=== PATIENT | male | born 1985 | race Caucasian/White ===

== ENCOUNTER 2023-03-10 10:55 | Inpatient (IN) ==
[2023-03-10 12:05] LABS: Basophils # (auto) 0.02 K/uL (0-0.2); Basophils % (auto) 0.5 %; Eosinophils # (auto) 0.07 K/uL (0-0.50); Eosinophils % (auto) 1.6 %; Hematocrit (blood only) 43.2 % (42.0-52.0); Hemoglobin 14.8 g/dl (14.0-18.0); Immature Granulocytes # (auto) 0.01 K/uL (0.01-0.20); Immature Granulocytes % (auto) 0.2 %; Lymphocytes # (auto) 1.51 K/uL (1.2-3.4); Lymphocytes % (auto) 34.7 %; Mean Corpuscular Hemoglobin 30.5 pg (25.0-34.0); Mean Corpuscular Hgb Conc 34.3 g/dL (32.0-36.0); Mean Corpuscular Volume 88.9 fL (80.0-100.0); Mean Platelet Volume 11.9 fL (9.4-12.4); Monocytes # (auto) 0.44 K/uL (0.11-0.59); Monocytes % (auto) 10.1 %; Neutrophils % (auto) 52.9 %; Platelet Count 176 K/uL (130-400); RDW Coefficient of Variation 12.4 % (11.5-14.5); RDW Standard Deviation 40.8 fL (36.4-46.3); Red Blood Count 4.86 M/uL (4.70-6.10); White Blood Count 4.35 K/ul (4.8-10.8)
[2023-03-10 12:28] LABS: Albumin Globulin Ratio 1.6 (0.9-2); Albumin Level 4.8 gm/dl (3.4-5.0); BUN Creatinine Ratio 16.7 (10-20); Bilirubin,Total 0.6 mg/dl (0.2-1.0); Calcium 9.8 mg/dl (8.6-10.3); Creatinine Clr Calc Pharmacy 133.9 ml/min; Est GFR (African American) 133.7 ml/min; Est GFR (Non-African American) 115.3 ml/min; Potassium 4.3 mmol/L (3.5-5.1); Total Protein 7.8 gm/dl (6.0-8.3)
[2023-03-10] MEDS ORDERED: IOVERSOL 350 MG 125mL Prefilled Syringe IV ONE (13:21)
--- NOTE | 2023-03-10 13:48 | CT Scan Report ---
UNENHANCED CT OF THE BRAIN; CT ANGIOGRAM OF THE BRAIN; CT ANGIOGRAM OF THE NECK CLINICAL HISTORY: Neurological deficit. Stroke like symptoms. Blurry vision. COMPARISON STUDY: No priors. TECHNIQUE: Unenhanced axial CT scan of the brain is performed. Subsequently, following the IV adminis tration of 125 of Optiray 350, CT angiogram of the head and neck was performed from the aortic arch t o the vertex. Images are reviewed in the axial, sagittal, and coronal planes. 3-D MIPS images are cre ated and assessed. IV contrast was administered without complication. All measurements were calculate d based on NASCET criteria. A dose lowering technique was utilized adhering to the principles of ALA RA. CT DOSE: 1040.65 mGy.cm FINDINGS: Brain parenchyma: The brain parenchyma is normal in appearance. There is no hemorrhage, mass effect, or evidence of acute territorial ischemia by CT criteria. There is no evidence of enhancing mass lesi on on the angiogram phase images. The ventricles, sulci, and cisterns are normal in configuration. Gr ay-white matter differentiation is preserved. No extra-axial fluid collection is seen. Thoracic aorta: Visualized portions of the thoracic aorta are normal in caliber. The aortic arch demo nstrates standard 3-vessel anatomy. Right carotid arterial system: The right common carotid artery is widely patent, as are the right int ernal and external carotid arteries. Left carotid arterial system: The left common carotid artery is widely patent, as are the left internal combustion engine subassembler al and external carotid arteries. Vertebral arteries: The vertebral arteries are widely patent bilaterally noting right-sided dominance . Subclavian arteries: Widely patent bilaterally. Intracranial vasculature: The internal carotid arteries are patent at the skull base, as are the ante rior and middle cerebral arteries bilaterally. The vertebrobasilar system and posterior cerebral yanely iam are widely patent. The right vertebral artery is dominant. There is a left posterior commuting a rtery. 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 No additional aneurysm is identified. There are no foci of high-grad e stenosis or focal vessel occlusion seen throughout the intracranial circulation. Jugular veins: Patent bilaterally. Dural sinuses: Patent. Lung apices: Partially visualized upper lobe lung parenchyma appears clear. Soft tissues: The visualized pharyngeal soft tissues are normal in appearance noting angiographic pha se technique. The oropharyngeal airway appears widely patent. The salivary and thyroid glands are nor mal in appearance. No cervical lymphadenopathy is seen. Skeletal structures: The calvarium appears intact. The cervical spine is within normal limits. Orbits: The bony orbits are intact. Orbital contents are normal as visualized. Sinuses and mastoids: The paranasal sinuses are clear. The mastoid air cells are well pneumatized. IMPRESSION: 1. No acute intracranial abnormality. 2. 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 3. Otherwise unremarkable CT angiogram of the brain 4. Unremarkable CT angiogram of the neck. ACT 112: Negative or not required by law. Electronically signed by: Chiki Marshall M.D. 03/10/2023 1:45 PM
--- NOTE | 2023-03-10 14:02 | Emergency Department Note ---
History of Present Illness General Chief complaint: Neuro Symptoms/Deficit Stated complaint: RIGHT ARM AND HAND NUMBNESS, BLURRED VISION Time Seen by Provider: 03/10/23 12:59 History of Present Illness Provider complaint: Blurry vision right arm weakness Onset (ago): hour(s) (3.5) Pain Consistency: + now resolved 37-year-old male presents emergency department for blurry vision and right arm weakness. Patient reports at approximately 9:30 AM he was sitting on his toilet and started to have difficulties moving his right arm. He states he felt like his right arm was numb. He states he was having difficulties texting or reaching to grab toilet paper. He reports he was having blurry vision. Patient reports the symptoms lasted for approximately 1 hour then he started developing a mild headache. Patient reports headache is currently mild. He reports the weakness in his right upper extremity has significantly improved. He still reports some paresthesias in his right upper extremity. No chest pain difficulty breathing. No nausea or vomiting. No blood thinner Home Medications Medication Instructions Recorded Confirmed Type multivitamin 1 tab PO QAM 03/10/23 03/10/23 History omeprazole 20 mg-sodium 1 cap PO DAILY 03/10/23 03/10/23 History bicarbonate 1.1 gram capsule (Zegerid OTC) Allergies Allergy/AdvReac Type Severity Reaction Status Date / Time No Known Allergies Allergy Unverified 03/10/23 14:35 Past Med/Surg History Medical History (Updated 03/10/23 @ 14:36 by Praneeth Jimenes PA-C) No pertinent family history No pertinent past medical history Surgical History (Updated 03/10/23 @ 14:10 by Sudarshan Bergman MD) No pertinent past surgical history Social History Smoking Status: Never smoker Feels Safe at Home: Yes Physical Exam Vital Signs Vital Signs - 24 hr 03/10/23 11:13 03/10/23 13:01 03/10/23 13:02 Temperature 36.5 C Temperature Source Temporal Artery Scan Pulse Rate 64 Pulse Rate [Left Finger] 78 Pulse Rhythm Regular Pulse Rhythm [Left Finger] Regular Pulse Strength [Left Finger] Normal Respiratory Rate 20 17 Respiratory Effort / Characteristics Non-Labored Spontaneous Non-Labored Spontaneous Respiratory Depth Normal Normal Respiratory Pattern Regular Blood Pressure 146/81 H Blood Pressure [Left Arm] 147/95 H Blood Pressure Mean 102 Blood Pressure Mean [Left Arm] 112 Blood Pressure Position [Left Arm] Semi-fowlers Pulse Oximetry 98 97 Oxygen Delivery Method Room Air Room Air Sepsis Recent Fever Within 48 Hours No Sepsis New/Unexplained Change in Mental Status No Sepsis Action Taken by Nursing No Action Required 03/10/23 13:02 03/10/23 13:38 Temperature Temperature Source Pulse Rate 58 L Pulse Rate [Left Finger] Pulse Rhythm Pulse Rhythm [Left Finger] Pulse Strength [Left Finger] Respiratory Rate Respiratory Effort / Characteristics Respiratory Depth Respiratory Pattern Blood Pressure Blood Pressure [Left Arm] Blood Pressure Mean Blood Pressure Mean [Left Arm] Blood Pressure Position [Left Arm] Pulse Oximetry 100 Oxygen Delivery Method Room Air Sepsis Recent Fever Within 48 Hours Sepsis New/Unexplained Change in Mental Status Sepsis Action Taken by Nursing Physical Exam HENT: Exam performed. -Head: Normocephalic and atraumatic. -Right Ear: External ear normal. No mastoid erythema -Left Ear: External ear normal. No mastoid erythema -Mouth/Throat: The oropharynx is clear and moist. No trismus in the jaw. No dental abscesses or uvula swelling. No oropharyngeal exudate or tonsillar abscesses. EYES: Conjunctivae and EOM are normal. Pupils are equal, round, and reactive to light. Right eye exhibits no discharge. Left eye exhibits no discharge. No scleral icterus. NECK: Normal range of motion. Neck supple. No JVD present. No spinous process tenderness present. No rigidity. No tracheal deviation and normal range of mot ion present. CV: Normal rate, regular rhythm, normal heart sounds and intact distal pulses. There is no peripheral edema. Palpable radial pulses bue. PULM/CHEST: Effort normal and breath sounds normal. No respiratory distress. No stridor. She has no wheezes. She has no rales. MUSC/SKEL: Normal range of motion. There is no peripheral edema, tenderness or deformity. NEURO: She is alert and oriented to person, place, and time. She has normal strength. No cranial nerve deficit or sensory deficit. Coordination and gait normal. GCS eye subscore is 4. GCS verbal subscore is 5. GCS motor subscore is 6. Cerebellar tests wnl. No clonus. NIHSS 0 SKIN: Skin is warm and dry. She is not diaphoretic. PSYCH: She has a normal mood and affect. Behavior is normal. Judgment and thought content normal. Course Course 1259: The patient was evaluated in room A4. A complete history and physical exam was performed Cardiac monitoring: An order was placed for continuous cardiac monitoring. The monitor shows a rate of 60 with sinus rhythm interpreted by me NIHSS 0, no code stroke called at this time. 1413: Vital signs stable. Imaging within normal limits. Is thought that the patient suffered a TIA. Patient is to be admitted for TIA/stroke work-up. Discussed case with Praneeth Jimenes NP for Dr. [facility] hospitalist will evaluate the patient. Administered Medications Discontinued Medications Ioversol (Ioversol 350 Mg 125ml Prefilled Syringe) 118 ml IV ONCE ONE Stop: 03/10/23 13:22 Last Admin: 03/10/23 13:24 Dose: 118 ml Documented By: ANGELA Medical Decision Making Laboratory Data Attestation: I reviewed the patient's lab results. 03/10/23 11:45 03/10/23 11:45 Lab Results 03/10/23 03/10/23 03/10/23 Range/Units 11:45 11:45 11:45 WBC 4.35 L (4.8-10.8) K/ul RBC 4.86 (4.70-6.10) M/uL Hgb 14.8 (14.0-18.0) g/dl Hct 43.2 (42.0-52.0) % MCV 88.9 (80.0-100.0) fL MCH 30.5 (25.0-34.0) pg MCHC 34.3 (32.0-36.0) g/dL RDW Std Deviation 40.8 (36.4-46.3) fL RDW Coeff of Dmitry 12.4 (11.5-14.5) % Plt Count 176 (130-400) K/uL MPV 11.9 (9.4-12.4) fL Immature Gran % (Auto) 0.2 % Neut % (Auto) 52.9 % Lymph % (Auto) 34.7 % [place] % (Auto) 10.1 % Eos % (Auto) 1.6 % Baso % (Auto) 0.5 % Neut # (Auto) 2.30 (1.40-6.50) K/uL Lymph # (Auto) 1.51 (1.2-3.4) K/uL [place] # (Auto) 0.44 (0.11-0.59) K/uL Eos # (Auto) 0.07 (0-0.50) K/uL Baso # (Auto) 0.02 (0-0.2) K/uL Immature Gran # (Auto) 0.01 (0.01-0.20) K/uL PT 11.3 (9.0-12.0) Seconds INR 1.0 (0.9-1.1) APTT 25.6 (21.0-31.0) Seconds PTT Ratio 0.9 Sodium 138 (136-145) mmol/L Potassium 4.3 (3.5-5.1) mmol/L Chloride 106 (98-107) mmol/L Carbon Dioxide 27 (21-32) mmol/L Anion Gap 5 (3-11) BUN 13 (6-23) mg/dl Creatinine 0.78 (0.6-1.4) mg/dl Est Cr Clr Drug Dosing 133.9 ml/min Est GFR ( Amer) 133.7 ml/min Est GFR (Non-Af Amer) 115.3 ml/min BUN/Creatinine Ratio 16.7 (10-20) Glucose 117 H (70-99(Fasting)) mg/dl Calcium 9.8 (8.6-10.3) mg/dl Magnesium 2.0 (1.7-2.4) mg/dl Total Bilirubin 0.6 (0.2-1.0) mg/dl AST 23 (13-39) U/L ALT 14 (7-52) U/L Alkaline Phosphatase 78 (34-104) U/L Troponin I High Sens 3.3 (0-20) pg/ml Total Protein 7.8 (6.0-8.3) gm/dl Albumin 4.8 (3.4-5.0) gm/dl Globulin 3.0 (2.5-4.0) gm/dl Albumin/Globulin Ratio 1.6 (0.9-2) Blood Type Antibody Screen 03/10/23 Range/Units 13:11 WBC (4.8-10.8) K/ul RBC (4.70-6.10) M/uL Hgb (14.0-18.0) g/dl Hct (42.0-52.0) % MCV (80.0-100.0) fL MCH (25.0-34.0) pg MCHC (32.0-36.0) g/dL RDW Std Deviation (36.4-46.3) fL RDW Coeff of Dmitry (11.5-14.5) % Plt Count (130-400) K/uL MPV (9.4-12.4) fL Immature Gran % (Auto) % Neut % (Auto) % Lymph % (Auto) % [place] % (Auto) % Eos % (Auto) % Baso % (Auto) % Neut # (Auto) (1.40-6.50) K/uL Lymph # (Auto) (1.2-3.4) K/uL [place] # (Auto) (0.11-0.59) K/uL Eos # (Auto) (0-0.50) K/uL Baso # (Auto) (0-0.2) K/uL Immature Gran # (Auto) (0.01-0.20) K/uL PT (9.0-12.0) Seconds INR (0.9-1.1) APTT (21.0-31.0) Seconds PTT Ratio Sodium (136-145) mmol/L Potassium (3.5-5.1) mmol/L Chloride (98-107) mmol/L Carbon Dioxide (21-32) mmol/L Anion Gap (3-11) BUN (6-23) mg/dl Creatinine (0.6-1.4) mg/dl Est Cr Clr Drug Dosing ml/min Est GFR ( Amer) ml/min Est GFR (Non-Af Amer) ml/min BUN/Creatinine Ratio (10-20) Glucose (70-99(Fasting)) mg/dl Calcium (8.6-10.3) mg/dl Magnesium (1.7-2.4) mg/dl Total Bilirubin (0.2-1.0) mg/dl AST (13-39) U/L ALT (7-52) U/L Alkaline Phosphatase (34-104) U/L Troponin I High Sens (0-20) pg/ml Total Protein (6.0-8.3) gm/dl Albumin (3.4-5.0) gm/dl Globulin (2.5-4.0) gm/dl Albumin/Globulin Ratio (0.9-2) Blood Type A Positive Antibody Screen NEGATIVE Imaging Data Attestation: I personally reviewed and interpreted this imaging study as follows: My Impression: CT head: no ICH Radiologist's Impression: Head CT 03/10/23 13:[address] OF THE BRAIN; CT ANGIOGRAM OF THE BRAIN; CT ANGIOGRAM OF THE NECK CLINICAL HISTORY: Neurological deficit. Stroke like symptoms. Blurry vision. COMPARISON STUDY: No priors. TECHNIQUE: Unenhanced axial CT scan of the brain is performed. Subsequently, following the IV administration of 125 of Optiray 350, CT angiogram of the head and neck was performed from the aortic arch to the vertex. Images are reviewed in the axial, sagittal, and coronal planes. 3-D MIPS images are created and assessed. IV contrast was administered without complication. All measurements were calculated based on NASCET criteria. A dose lowering technique was utilized adhering to the principles of ALARA. CT DOSE: 1040.65 mGy.cm FINDINGS: Brain parenchyma: The brain parenchyma is normal in appearance. There is no hemorrhage, mass effect, or evidence of acute territorial ischemia by CT criteria. There is no evidence of enhancing mass lesion on the angiogram phase images. The ventricles, sulci, and cisterns are normal in configuration. Summers- white matter differentiation is preserved. No extra-axial fluid collection is se en. Thoracic aorta: Visualized portions of the thoracic aorta are normal in caliber. The aortic arch demonstrates standard 3-vessel anatomy. Right carotid arterial system: The right common carotid artery is widely patent, as are the right internal and external carotid arteries. Left carotid arterial system: The left common carotid artery is widely patent, as are the left internal and external carotid arteries. Vertebral arteries: The vertebral arteries are widely patent bilaterally noting right-sided dominance. Subclavian arteries: Widely patent bilaterally. Intracranial vasculature: The internal carotid arteries are patent at the skull base, as are the anterior and middle cerebral arteries bilaterally. The vertebrobasilar system and posterior cerebral arteries are widely patent. The right vertebral artery is dominant. There is a left posterior commuting artery. 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 No additional aneurysm is identified. There are no foci of high-grade stenosis or focal vessel occlusion seen throughout the intracranial circulation. Jugular veins: Patent bilaterally. Dural sinuses: Patent. Lung apices: Partially visualized upper lobe lung parenchyma appears clear. Soft tissues: The visualized pharyngeal soft tissues are normal in appearance noting angiographic phase technique. The oropharyngeal airway appears widely patent. The salivary and thyroid glands are normal in appearance. No cervical lymphadenopathy is seen. Skeletal structures: The calvarium appears intact. The cervical spine is within normal limits. Orbits: The bony orbits are intact. Orbital contents are normal as visualized. Sinuses and mastoids: The paranasal sinuses are clear. The mastoid air cells are well pneumatized. IMPRESSION: 1. No acute intracranial abnormality. 2. 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 3. Otherwise unremarkable CT angiogram of the brain 4. Unremarkable CT angiogram of the neck. ACT 112: Negative or not required by law. Electronically signed by: Chiki Marshall M.D. 03/10/2023 1:45 PM Head CTA 03/10/23 13:[address] OF THE BRAIN; CT ANGIOGRAM OF THE BRAIN; CT ANGIOGRAM OF THE NECK CLINICAL HISTORY: Neurological deficit. Stroke like symptoms. Blurry vision. COMPARISON STUDY: No priors. TECHNIQUE: Unenhanced axial CT scan of the brain is performed. Subsequently, following the IV administration of 125 of Optiray 350, CT angiogram of the head and neck was performed from the aortic arch to the vertex. Images are reviewed in the axial, sagittal, and coronal planes. 3-D MIPS images are created and assessed. IV contrast was administered without complication. All measurements were calculated based on NASCET criteria. A dose lowering technique was utilized adhering to the principles of ALARA. CT DOSE: 1040.65 mGy.cm FINDINGS: Brain parenchyma: The brain parenchyma is normal in appearance. There is no hemorrhage, mass effect, or evidence of acute territorial ischemia by CT criteria. There is no evidence of enhancing mass lesion on the angiogram phase images. The ventricles, sulci, and cisterns are normal in configuration. Summers- white matter differentiation is preserved. No extra-axial fluid collection is seen. Thoracic aorta: Visualized portions of the thoracic aorta are normal in caliber. The aortic arch demonstrates standard 3-vessel anatomy. Right carotid arterial system: The right common carotid artery is widely patent, as are the right internal and external carotid arteries. Left carotid arterial system: The left common carotid artery is widely patent, as are the left internal and external carotid arteries. Vertebral arteries: The vertebral arteries are widely patent bilaterally noting right-sided dominance. Subclavian arteries: Widely patent bilaterally. Intracranial vasculature: The internal carotid arteries are patent at the skull base, as are the anterior and middle cerebral arteries bilaterally. The vert ebrobasilar system and posterior cerebral arteries are widely patent. The right vertebral artery is dominant. There is a left posterior commuting artery. 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 No additional aneurysm is identified. There are no foci of high-grade stenosis or focal vessel occlusion seen throughout the intracranial circulation. Jugular veins: Patent bilaterally. Dural sinuses: Patent. Lung apices: Partially visualized upper lobe lung parenchyma appears clear. Soft tissues: The visualized pharyngeal soft tissues are normal in appearance noting angiographic phase technique. The oropharyngeal airway appears widely patent. The salivary and thyroid glands are normal in appearance. No cervical lymphadenopathy is seen. Skeletal structures: The calvarium appears intact. The cervical spine is within normal limits. Orbits: The bony orbits are intact. Orbital contents are normal as visualized. Sinuses and mastoids: The paranasal sinuses are clear. The mastoid air cells are well pneumatized. IMPRESSION: 1. No acute intracranial abnormality. 2. There is a 4 mm aneurysm of the left middle cerebral artery seen along the s ylvian fissure as above. 3. Otherwise unremarkable CT angiogram of the brain 4. Unremarkable CT angiogram of the neck. ACT 112: Negative or not required by law. Electronically signed by: Chiki Marshall M.D. 03/10/2023 1:45 PM Neck CTA 03/10/23 13:[address] OF THE BRAIN; CT ANGIOGRAM OF THE BRAIN; CT ANGIOGRAM OF THE NECK CLINICAL HISTORY: Neurological deficit. Stroke like symptoms. Blurry vision. COMPARISON STUDY: No priors. TECHNIQUE: Unenhanced axial CT scan of the brain is performed. Subsequently, following the IV administration of 125 of Optiray 350, CT angiogram of the head and neck was performed from the aortic arch to the vertex. Images are reviewed in the axial, sagittal, and coronal planes. 3-D MIPS images are created and assessed. IV contrast was administered without complication. All measurements were calculated based on NASCET criteria. A dose lowering technique was utilized adhering to the principles of ALARA. CT DOSE: 1040.65 mGy.cm FINDINGS: Brain parenchyma: The brain parenchyma is normal in appearance. There is no hemorrhage, mass effect, or evidence of acute territorial ischemia by CT criteria. There is no evidence of enhancing mass lesion on the angiogram phase images. The ventricles, sulci, and cisterns are normal in configuration. Summers- white matter differentiation is preserved. No extra-axial fluid collection is seen. Thoracic aorta: Visualized portions of the thoracic aorta are normal in caliber. The aortic arch demonstrates standard 3-vessel anatomy. Right carotid arterial system: The right common carotid artery is widely patent, as are the right internal and external carotid arteries. Left carotid arterial system: The left common carotid artery is widely patent, as are the left internal and external carotid arteries. Vertebral arteries: The vertebral arteries are widely patent bilaterally noting right-sided dominance. Subclavian arteries: Widely patent bilaterally. Intracranial vasculature: The internal carotid arteries are patent at the skull base, as are the anterior and middle cerebral arteries bilaterally. The vertebrobasilar system and posterior cerebral arteries are widely patent. The right vertebral artery is dominant. There is a left posterior commuting artery. 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 No additional aneurysm is identified. There are no foci of high-grade stenosis or focal vessel occlusion seen throughout the intracranial circulation. Jugular veins: Patent bilaterally. Dural sinuses: Patent. Lung apices: Partially visualized upper lobe lung parenchyma appears clear. Soft tissues: The visualized pharyngeal soft tissues are normal in appearance noting angiographic phase technique. The oropharyngeal airway appears widely patent. The salivary and thyroid glands are normal in appearance. No cervical lymphadenopathy is seen. Skeletal structures: The calvarium appears intact. The cervical spine is within normal limits. Orbits: The bony orbits are intact. Orbital contents are normal as visualized. Sinuses and mastoids: The paranasal sinuses are clear. The mastoid air cells are well pneumatized. IMPRESSION: 1. No acute intracranial abnormality. 2. 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 3. Otherwise unremarkable CT angiogram of the brain 4. Unremarkable CT angiogram of the neck. ACT 112: Negative or not required by law. Electronically signed by: Chiki Marshall M.D. 03/10/2023 1:45 PM ECG Data Attestation: I personally reviewed and interpreted this ECG as follows: Rate (beats per minute): 64 Rhythm: + normal sinus ECG Intervals/blocks: + Normal OK and + Normal QT-c ECG ST segments: + Normal ST segments Additional Comments: QRS 78 MDM Narrative 1259: The patient was evaluated in room A4. A complete history and physical exam was performed Cardiac monitoring: An order was placed for continuous cardiac monitoring. The monitor shows a rate of 60 with sinus rhythm interpreted by me NIHSS 0, no code stroke called at this time. 1413: Vital signs stable. Imaging within normal limits. Is thought that the patient suffered a TIA. Patient is to be admitted for TIA/stroke work-up. Dis cussed case with Praneeth Jimenes NP for Dr. [facility] hospitalist will evaluate the patient. Impression & Plan Brain TIA Discharge Plan Visit Data Chief Complaint: Neuro Symptoms/Deficit Stated Complaint: RIGHT ARM AND HAND NUMBNESS, BLURRED VISION ED Provider: Sudarshan Bergman Discharge Problem: Brain TIA Patient Disposition: Being Evaluated by Hospitalist Forms Stand Alone Forms: My [facility] Prescriptions Prescriptions: No Action multivitamin [Multi-Vitamin] Tablet 1 tab PO QAM omeprazole-sodium bicarbonate [Zegerid OTC] 20-1.1 mg-gram Capsule 1 cap PO DAILY Referrals Referrals: PCP,NO [Primary Care Provider] -
--- NOTE | 2023-03-10 14:06 | History & Physical Report ---
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 seen along the sylvian fissure"but otherwise were unremarkable -Will continue his stroke workup with MRI of the brain wo con, TTE, and am fasting lipid/A1c -Q4H neuro checks -Will consult Neurology for assistance with his workup -Will give 324 mg PO aspirin now, will wait for further dosing until his MRI results are back -BL SCD's for DVT PPX -Regular diet -AM CBC, BMP, Mag (2) Hernia, hiatal: Plan: -Continue omeprazole (3) GERD (gastroesophageal reflux disease): Plan: -Continue omeprazole (4) Tobacco abuse, in remission: Plan: -Smoked cigarettes in college, not currently using tobacco Plan The patient was discussed with Dr. Stewart at the time of the admission History of Present Illness Chief Complaint: Right arm numbness, blurry vision Primary Care Provider: NO PCP Benny is a 37 year old male with a PMH of hiatial hernia, GERD, and previous tobacco abuse who presented to the [facility] ED on 03/10 due to right arm numbness/weakness with blurry vision this am. Vitals remained stable in the ED. Labs including CBC, CMP, and high sen trop were WNL. CT of the head wo con and CTA of the head/neck was read as "1. No acute intracranial abnormality. 2. 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 3. Otherwise unremarkable CT angiogram of the brain 4. Unremarkable CT angiogram of the neck.". We were asked to admit the patient for further evaluation of his neurologic symptoms. At the time of the exam the patient was sitting in bed in no acute distress with his sitting bedside, history was obtained from both. The patient was in his normal state of health when he woke this am around 0730. He took his am dose of omeprazole and started his day. He was sitting on the toilet at approximately 0930 when he tried to reach for the toilet paper with his right hand. He states that his right arm was difficult to control, almost as though his fine motor control was off. He states that his arm felt somewhat numb or like it was not his own right arm during this time but denies paresthesias. He also noticed that he was unable to coordinate grabbing/adjusting his glasses with his right arm/hand during this time. He was able to get back to his desk and tried to continue working on his computer. While trying to read his e-mail he noticed that he could only read text in the central portion of both eyes, he felt as though he had to adjust the position of his head to read other portions of the screen. He denies recent fever, chills, chest pain, SOB, cough, abd pain, nausea, vomiting, abd pain, dysuria, hematuria, melena, LE swelling, and recent trauma. He denies having symptoms like this in the past. He does have a previous history of scotomas not associated with headache or other symptoms of a migraine. He denies his vision changes being similar to a scotoma today. At the time of the exam he states that his symptoms have nearly resolved completely. He feels as though his strength and coordination are improved in his RUE but that his RUE still feels "off". His vision is back to baseline per the patient. Of note, the patient and his rock climb frequently. They were recently doing larger bolder climbs over the past week. The patient also helped his friend move a heavy washer last night but denies any recent trauma or injuries. Please refer to Dr. Stewart's attestation for any changes to the treatment plan Allergies Allergy/AdvReac Type Severity Reaction Status Date / Time No Known Allergies Allergy Unverified 03/10/23 14:35 Home Medications Medication Instructions Recorded Confirmed Type multivitamin 1 tab PO QAM 03/10/23 03/10/23 History omeprazole 20 mg-sodium 1 cap PO DAILY 03/10/23 03/10/23 History bicarbonate 1.1 gram capsule (Zegerid OTC) Past Med/Surg History Medical History (Updated 03/10/23 @ 14:36 by Praneeth Jimenes PA-C) No pertinent family history No pertinent past medical history Surgical History (Updated 03/10/23 @ 14:10 by Sudarshan Bergman MD) No pertinent past surgical history Social History Smoking Status: Former smoker Hx Alcohol Use: Yes Alcohol type: beer Hx Substance Use: No Preferred Language: Omani Communication Ability: Effective Radio Personality Required: No Beliefs That Will Affect Care: None Current Living Situation: Spouse Other Information That Helps Us Care for You: No Feels Safe at Home: Yes Safety Concerns: Feels Safe At This Time Assistive Devices: None Physical Exam Physical Exam: Physical Exam: General: In no acute distress, stated age, well-nourished, good hygiene HEENT: Normocephalic, atraumatic, no scleral icterus, pupils around round, symmetrical, and reactive to light, moist mucus membranes, trachea midline, no thyromegaly Chest/Pulm: No respiratory distress, symmetrical chest expansion, clear breath sounds throughout Cardiac: RRR, no murmurs noted Abdomen: Negative for ascites and bruising, normoactive bowel sounds, soft, non-tender to palpation throughout Musculoskeletal: Symmetrical and without signs of acute trauma, upper and lower extremities with full ROM, no atrophy, spasticity, or flaccidity Extremities: Radial, dorsalis pedis, and posterior tibial pulses are intact and symmetrical, no edema noted in the BL LE's Skin: Warm, dry, no rashes , lesions, or scars noted Neuro: Alert and oriented to person, place, month, year, and president, no focal defects, CN II-XII tested and intact, negative cerebellar and BL pronator drift testing, no tremors noted Psych: No acute distress, calm and cooperative during the exam Results & Data Results & Data Vital Signs (Past 12 Hours) Vital Signs Temp Pulse Pulse Resp BP BP Pulse Ox 03/10/23 13:38 58 L 03/10/23 13:02 100 03/10/23 13:02 78 17 147/95 H 97 03/10/23 13:01 03/10/23 11:13 36.5 C 64 20 146/81 H 98 O2 Del Method 03/10/23 13:38 03/10/23 13:02 Room Air 03/10/23 13:02 Room Air 03/10/23 13:01 Room Air 03/10/23 11:13 Laboratory Results Abnormal lab results 03/10/23 03/10/23 Range/Units 11:45 11:45 WBC 4.35 L (4.8-10.8) K/ul Glucose 117 H (70-99(Fasting)) mg/dl Diagnostic Findings Head CT 03/10/23 13:[address] OF THE BRAIN; CT ANGIOGRAM OF THE BRAIN; CT ANGIOGRAM OF THE NECK CLINICAL HISTORY: Neurological deficit. Stroke like symptoms. Blurry vision. COMPARISON STUDY: No priors. TECHNIQUE: Unenhanced axial CT scan of the brain is performed. Subsequently, following the IV administration of 125 of Optiray 350, CT angiogram of the head and neck was performed from the aortic arch to the vertex. Images are reviewed in the axial, sagittal, and coronal planes. 3-D MIPS images are created and assessed. IV contrast was administered without complication. All measurements were calculated based on NASCET criteria. A dose lowering technique was utilized adhering to the principles of ALARA. CT DOSE: 1040.65 mGy.cm FINDINGS: Brain parenchyma: The brain parenchyma is normal in appearance. There is no hemorrhage, mass effect, or evidence of acute territorial ischemia by CT criteria. There is no evidence of enhancing mass lesion on the angiogram phase images. The ventricles, sulci, and cisterns are normal in configuration. Summers- white matter differentiation is preserved. No extra-axial fluid collection is seen. Thoracic aorta: Visualized portions of the thoracic aorta are normal in caliber. The aortic arch demonstrates standard 3-vessel anatomy. Right carotid arterial system: The right common carotid artery is widely patent, as are the right internal and external carotid arteries. Left carotid arterial system: The left common carotid artery is widely patent, as are the left internal and external carotid arteries. Vertebral arteries: The vertebral arteries are widely patent bilaterally noting right-sided dominance. Subclavian arteries: Widely patent bilaterally. Intracranial vasculature: The internal carotid arteries are patent at the skull base, as are the anterior and middle cerebral arteries bilaterally. The vertebrobasilar system and posterior cerebral arteries are widely patent. The right vertebral artery is dominant. There is a left posterior commuting artery. 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 No additional aneurysm is identified. There are no foci of high-grade stenosis or focal vessel occlusion seen throughout the intracranial circulation. Jugular veins: Patent bilaterally. Dural sinuses: Patent. Lung apices: Partially visualized upper lobe lung parenchyma appears clear. Soft tissues: The visualized pharyngeal soft tissues are normal in appearance noting angiographic phase technique. The oropharyngeal airway appears widely patent. The salivary and thyroid glands are normal in appearance. No cervical lymphadenopathy is seen. Skeletal structures: The calvarium appears intact. The cervical spine is within normal limits. Orbits: The bony orbits are intact. Orbital contents are normal as visualized. Sinuses and mastoids: The paranasal sinuses are clear. The mastoid air cells are well pneumatized. IMPRESSION: 1. No acute intracranial abnormality. 2. 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 3. Otherwise unremarkable CT angiogram of the brain 4. Unremarkable CT angiogram of the neck. ACT 112: Negative or not required by law. Electronically signed by: Chiki Marshall M.D. 03/10/2023 1:45 PM Head CTA 03/10/23 13:[address] OF THE BRAIN; CT ANGIOGRAM OF THE BRAIN; CT ANGIOGRAM OF THE NECK CLINICAL HISTORY: Neurological deficit. Stroke like symptoms. Blurry vision. COMPARISON STUDY: No priors. TECHNIQUE: Unenhanced axial CT scan of the brain is performed. Subsequently, following the IV administration of 125 of Optiray 350, CT angiogram of the head and neck was performed from the aortic arch to the vertex. Images are reviewed in the axial, sagittal, and coronal planes. 3-D MIPS images are created and assessed. IV contrast was administered without complication. All measurements were calculated based on NASCET criteria. A dose lowering technique was utilized adhering to the principles of ALARA. CT DOSE: 1040.65 mGy.cm FINDINGS: Brain parenchyma: The brain parenchyma is normal in appearance. There is no hemorrhage, mass effect, or evidence of acute territorial ischemia by CT criteria. There is no evidence of enhancing mass lesion on the angiogram phase images. The ventricles, sulci, and cisterns are normal in configuration. Summers- white matter differentiation is preserved. No extra-axial fluid collection is seen. Thoracic aorta: Visualized portions of the thoracic aorta are normal in caliber. The aortic arch demonstrates standard 3-vessel anatomy. Right carotid arterial system: The right common carotid artery is widely patent, as are the right internal and external carotid arteries. Left carotid arterial system: The left common carotid artery is widely patent, as are the left internal and external carotid arteries. Vertebral arteries: The vertebral arteries are widely patent bilaterally noting right-sided dominance. Subclavian arteries: Widely patent bilaterally. Intracranial vasculature: The internal carotid arteries are patent at the skull base, as are the anterior and middle cerebral arteries bilaterally. The vertebrobasilar system and posterior cerebral arteries are widely patent. The right vertebral artery is dominant. There is a left posterior commuting artery. 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 No additional aneurysm is identified. There are no foci of high-grade stenosis or focal vessel occlusion seen throughout the intracranial circulation. Jugular veins: Patent bilaterally. Dural sinuses: Patent. Lung apices: Partially visualized upper lobe lung parenchyma appears clear. Soft tissues: The visualized pharyngeal soft tissues are normal in appearance noting angiographic phase technique. The oropharyngeal airway appears widely patent. The salivary and thyroid glands are normal in appearance. No cervical lymphadenopathy is seen. Skeletal structures: The calvarium appears intact. The cervical spine is within normal limits. Orbits: The bony orbits are intact. Orbital contents are normal as visualized. Sinuses and mastoids: The paranasal sinuses are clear. The mastoid air cells are well pneumatized. IMPRESSION: 1. No acute intracranial abnormality. 2. 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 3. Otherwise unremarkable CT angiogram of the brain 4. Unremarkable CT angiogram of the neck. ACT 112: Negative or not required by law. Electronically signed by: Chiki Marshall M.D. 03/10/2023 1:45 PM Neck CTA 03/10/23 13:[address] OF THE BRAIN; CT ANGIOGRAM OF THE BRAIN; CT ANGIOGRAM OF THE NECK CLINICAL HISTORY: Neurological deficit. Stroke like symptoms. Blurry vision. COMPARISON STUDY: No priors. TECHNIQUE: Unenhanced axial CT scan of the brain is performed. Subsequently, following the IV administration of 125 of Optiray 350, CT angiogram of the head and neck was performed from the aortic arch to the vertex. Images are reviewed in the axial, sagittal, and coronal planes. 3-D MIPS images are created and assessed. IV contrast was administered without complication. All measurements were calculated based on NASCET criteria. A dose lowering technique was utilized adhering to the principles of ALARA. CT DOSE: 1040.65 mGy.cm FINDINGS: Brain parenchyma: The brain parenchyma is normal in appearance. There is no hemorrhage, mass effect, or evidence of acute territorial ischemia by CT criteria. There is no evidence of enhancing mass lesion on the angiogram phase images. The ventricles, sulci, and cisterns are normal in configuration. Summers- white matter differentiation is preserved. No extra-axial fluid collection is seen. Thoracic aorta: Visualized portions of the thoracic aorta are normal in caliber. The aortic arch demonstrates standard 3-vessel anatomy. Right carotid arterial system: The right common carotid artery is widely patent, as are the right internal and external carotid arteries. Left carotid arterial system: The left common carotid artery is widely patent, as are the left internal and external carotid arteries. Vertebral arteries: The vertebral arteries are widely patent bilaterally noting right-sided dominance. Subclavian arteries: Widely patent bilaterally. Intracranial vasculature: The internal carotid arteries are patent at the skull base, as are the anterior and middle cerebral arteries bilaterally. The vertebrobasilar system and posterior cerebral arteries are widely patent. The right vertebral artery is dominant. There is a left posterior commuting artery. 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 No additional aneurysm is identified. There are no foci of high-grade stenosis or focal vessel occlusion seen throughout the intracranial circulation. Jugular veins: Patent bilaterally. Dural sinuses: Patent. Lung apices: Partially visualized upper lobe lung parenchyma appears clear. Soft tissues: The visualized pharyngeal soft tissues are normal in appearance noting angiographic phase technique. The oropharyngeal airway appears widely patent. The salivary and thyroid glands are normal in appearance. No cervical lymphadenopathy is seen. Skeletal structures: The calvarium appears intact. The cervical spine is within normal limits. Orbits: The bony orbits are intact. Orbital contents are normal as visualized. Sinuses and mastoids: The paranasal sinuses are clear. The mastoid air cells are well pneumatized. IMPRESSION: 1. No acute intracranial abnormality. 2. 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 3. Otherwise unremarkable CT angiogram of the brain 4. Unremarkable CT angiogram of the neck. ACT 112: Negative or not required by law. Electronically signed by: Chiki Marshall M.D. 03/10/2023 1:45 PM ECG Additional Comments: Normal sinus rhythm Normal ECG No previous ECGs available Code Status & VTE Plan Code Status Full code VTE Prophylaxis Plan VTE Prophylaxis will be ordered: Yes Supervising Physician Co-Signing Physician Notes I personally saw and examined the patient. I verified all reyes points and agree with Praneeth Jimenes PA-C with the following exceptions and/or additions: 37 year old male presents to the ER with right arm loss of co-ordination and numbness. No tingling. Mostly resolved by the time he came to the ER but symptoms lasted for > 1 hour. No associated dizziness. O/E A&Ox3, HS RRR, no murmurs, Chest CTAB, Abdo SNT, normal finger eye co- ordination, no dysdiadochokinesis, CN 2-> 12 intact, b/l upper extremities 5/5. A/P Acute CVA - MRI confirmed acute stroke. Unclear cause given lack of risk factors, young age, lack of cerebral artery disease will get hypercoagulable workup with AM labs. TTE. Telemetry. Consult neurology. Symptoms objectively and mostly subjectively resolved when seen in the ER. ASA started however will defer statin given lack of cerebral artery disease pending neurology consultation. PG Care Time/CCT Total # of Minutes Spent Total Time Spent with Patient: Total time spent is greater than 50% in coordination of care (as documented) at patient's floor/unit and/or counseling patient: [place] [address] INT INP/OBS CARE 3/75MIN Patient Type New Medical Decision Making High Complexity Diagnoses Stroke-like symptoms R29.90 Hernia, hiatal K44.9 GERD (gastroesophageal reflux disease) K21.9 Tobacco abuse, in remission F17.201
[2023-03-10 14:19] LABS: Partial Thromboplastin Ratio 0.9; Partial Thromboplastin Time 25.6 Seconds (21.0-31.0); Prothrombin Time 11.3 Seconds (9.0-12.0)
[2023-03-10 14:21] LABS: Troponin I High Sensitivity 3.3 pg/ml (0-20)
[2023-03-10] MEDS ORDERED: PHARMACIST DISCHARGE MED REC CONSULT PRN (14:31)
[2023-03-10] MEDS ORDERED: ASPIRIN 81 MG CHEW PO STA (14:33)
[2023-03-10] MEDS ORDERED: ACETAMINOPHEN 325 MG TAB PO PRN (16:48)
--- NOTE | 2023-03-10 18:21 | Magnetic Resonance Report ---
MRI OF THE BRAIN WITHOUT IV CONTRAST CLINICAL HISTORY: Strokelike symptoms. COMPARISON STUDY: CT of the brain dated 03/10/2023. TECHNIQUE: MRI of the brain was performed utilizing various T1 and T2-weighted sequences in the axial , sagittal, and coronal planes. IV contrast was not administered for this examination. FINDINGS: Brain parenchyma: There is an approximately 2.5 cm focus of restricted diffusion identified in the le ft parietal lobe consistent with an acute to subacute infarct. No additional foci of restricted diffu edwin are identified. There is no hemorrhage or mass effect. No extra-axial fluid collection is seen. The cerebellar tonsils are normal in configuration. Ventricles, sulci, and cisterns: Normal in configuration. Pituitary and sella: Unremarkable. Intracranial vasculature: Normal flow voids are maintained at the skull base. Orbits: The bony orbits are grossly intact. Orbital contents are normal in appearance. Sinuses and mastoids: Clear. Calvarium: Unremarkable. Cervical cord: Partially visualized cervical spinal cord is normal in morphology and signal intensity . IMPRESSION: 1. There is an approximately 2.5 cm acute to subacute infarct identified in the left parietal lobe co rtex. 2. No additional foci of acute ischemia are identified. 3. There is no hemorrhage or mass effect. ACT 112: Negative or not required by law. Electronically signed by: Chiki Marshall M.D. 03/10/2023 6:19 PM
--- NOTE | 2023-03-11 06:00 | Electrocardiogram Report ---
Test Reason : Blood Pressure : / mmHG Vent. Rate : 064 BPM Atrial Rate : 064 BPM P-R Int : 170 ms QRS Dur : 078 ms QT Int : 388 ms P-R-T Axes : 081 087 056 degrees QTc Int : 400 ms Normal sinus rhythm Normal ECG No previous ECGs available Confirmed by Jacob Claros ([id number]) on 03/11/2023 5:59:48 AM Referred By: Confirmed By:Jacob Claros
[2023-03-11 06:10] LABS: Basophils # (auto) 0.02 K/uL (0-0.2); Basophils % (auto) 0.4 %; Eosinophils # (auto) 0.11 K/uL (0-0.50); Eosinophils % (auto) 2.1 %; Hematocrit (blood only) 44.4 % (42.0-52.0); Hemoglobin 15.2 g/dl (14.0-18.0); Mean Corpuscular Hemoglobin 30.6 pg (25.0-34.0); Mean Corpuscular Hgb Conc 34.2 g/dL (32.0-36.0); Mean Corpuscular Volume 89.3 fL (80.0-100.0); Mean Platelet Volume 12.2 fL (9.4-12.4); Monocytes # (auto) 0.53 K/uL (0.11-0.59); Monocytes % (auto) 10.3 %; Neutrophils # (auto) 2.68 K/uL (1.40-6.50); Neutrophils % (auto) 52.2 %; Platelet Count 175 K/uL (130-400); RDW Coefficient of Variation 12.3 % (11.5-14.5); RDW Standard Deviation 40.4 fL (36.4-46.3); Red Blood Count 4.97 M/uL (4.70-6.10); White Blood Count 5.14 K/ul (4.8-10.8)
[2023-03-11 06:24] LABS: BUN Creatinine Ratio 15.7 (10-20); Calcium 9.6 mg/dl (8.6-10.3); Chol HDL Ratio 2.9 (0-5); Creatinine Clr Calc Pharmacy 129.8 ml/min; Est GFR (African American) 130.3 ml/min; Est GFR (Non-African American) 112.4 ml/min; Potassium 4.2 mmol/L (3.5-5.1)
[2023-03-11 07:26] LABS: Estimated Average Glucose 117 mg/dl; Hemoglobin A1C 5.7 % (4.5-5.6)
--- NOTE | 2023-03-11 08:56 | Neurology Consultation ---
Date of Consultation March 11, 2023 Assessment & Plan (1) Stroke with cerebral ischemia: Resolved R sided weakness and aphasia consistent with stroke seen on MRI which appears to be embolic. Main concern is for PFO given history of migraine with aura and history of valsalva prior to the event. Otherwise agree with hypercoag workup as ordered. Aspirin monotherapy is appropriate for now and would add lipitor 10mg daily for LDL goal <70 (is 78). -- Aspirin 81mg daily, lipitor 10mg daily -- Echo with bubble study pending -- Cardiac event monitor after discharge -- Hypercoag workup pending -- Neuro follow-up in 6-8 weeks - at visit would consider SAMI, cancer screening, loop recorder depending on above results. Telehealth Consultation Telehealth Information Telehealth Information: I performed this visit using a real-time telehealth connection between my location and the patients location ([facility]). After connecting through interactive tele-video, patient was identified by name and date of and/or wristband check.Patient (or authorized healthcare auto service representative) was informed that this was a telemedicine visit and it was being conducted confidentially over secure lines. My office door was closed and no one else was present in the room with me.Patient (or authorized healthcare auto service representative) provided consent to proceed with the visit, expressed an understanding of privacy and security of the telemedicine visit, and gave permission to have a hospital auto service representative in the room in order to assist with the visit and to conduct portions of the visit, as needed. I informed the patient (or authorized healthcare auto service representative) that I reviewed their record and presented the opportunity for them to ask any questions regarding the visit today. The patient agreed to participate. History of Present Illness Reason for Consultation: stroke Requesting Physician: Dr. Calderon Attending Physician: Nasim Calderon MD History of Present Illness Benny Franklin is a 37 yo M presenting with a transient episode of speech difficulty and R arm weakness that began yesterday morning and lasted approximately an hour in total. He feels back to baseline currently. No history of stroke or blood clots in the past or in his family. Smoked briefly in college but otherwise takes no medications other than omeprazole. Healthy and active previous to this event, works in a business setting. He does have a history of migraines with visual aura that he has approximately monthly at most. He did have a headache with the event yesterday but different than his typical headache. Of note, he did lift a heavy object 2 days prior to symptom onset which was an unusual activity for him. Allergies Allergy/AdvReac Type Severity Reaction Status Date / Time No Known Allergies Allergy Unverified 03/10/23 14:35 Home Medications Medication Instructions Recorded Confirmed Type multivitamin 1 tab PO QAM 03/10/23 03/10/23 History omeprazole 20 mg-sodium 1 cap PO DAILY 03/10/23 03/10/23 History bicarbonate 1.1 gram capsule (Zegerid OTC) Patient History Medical History (Updated 03/11/23 @ 08:52 by Erlin Funk MD) No pertinent family history No pertinent past medical history Surgical History (Updated 03/10/23 @ 14:10 by Sudarshan Bergman MD) No pertinent past surgical history Social History Smoking Status: Former smoker Hx Alcohol Use: Yes Alcohol type: beer Hx Substance Use: No Preferred Language: Arabic Communication Ability: Effective Mix House Tender Required: No Beliefs That Will Affect Care: None Current Living Situation: Spouse Other Information That Helps Us Care for You: No Feels Safe at Home: Yes Safety Concerns: Feels Safe At This Time Assistive Devices: None Review of Systems +R arm weakness, resolved Physical Exam Neurological Examination: Mental Status: Awake and alert. Oriented to person, place, and time. Fluent. Comprehension intact. Affect appropriate. Cranial Nerves: II: Reads NIHSS cards, pupils 3/3 to 2/2, samson grossly intact. III/IV/: Versions intact without nystagmus, VII: Facial expression symmetric VIII: Hearing intact to voice Motor: Strength was symmetric and antigravity throughout. Pronator drift was ab sent. There were no abnormal movements. Coordination: No dysmetria Reflexes: Unable to assess over telemedicine Results & Data Vital Signs (Past 12 Hours) Vital Signs Temp Pulse Pulse Resp BP BP Pulse Ox 03/11/23 07:41 51 L 03/11/23 07:33 36.6 C 62 17 121/77 98 03/11/23 03:22 36.6 C 55 L 18 116/70 98 03/10/23 23:29 36.6 C 53 L 18 133/78 97 03/11/23 00:13 57 L 03/10/23 21:33 37.1 C 96 H 12 131/78 100 O2 Del Method 03/11/23 07:41 03/11/23 07:33 Room Air 03/11/23 03:22 Room Air 03/10/23 23:29 Room Air 03/11/23 00:13 03/10/23 21:33 Room Air Laboratory Results Abnormal lab results 03/10/23 03/10/23 03/11/23 Range/Units 11:45 11:45 05:30 WBC 4.35 L (4.8-10.8) K/ul Immature Gran # (Auto) 0.00 L (0.01-0.20) K/uL Glucose 117 H (70-99(Fasting)) mg/dl Hemoglobin A1c (4.5-5.6) % 03/11/23 Range/Units 05:30 WBC (4.8-10.8) K/ul Immature Gran # (Auto) (0.01-0.20) K/uL Glucose (70-99(Fasting)) mg/dl Hemoglobin A1c 5.7 H (4.5-5.6) % Diagnostic Findings MRI brain - small wedged shaped area of ischemia in the L parietal lobe CTA head and neck - Unremarkable
[2023-03-11] MEDS ORDERED: ASPIRIN 81 MG ECTAB PO SCH (09:00)
[2023-03-11] MEDS ORDERED: ATORVASTATIN 40 MG TAB PO SCH (09:00)
--- NOTE | 2023-03-11 13:31 | Discharge Summary ---
Date of Service March 11, 2023 Admission HPI Per Admitting Provider Benny is a 37 year old male with a PMH of hiatial hernia, GERD, and previous tobacco abuse who presented to the [facility] ED on 03/10 due to right arm numbness/weakness with blurry vision this am. Vitals remained stable in the ED. Labs including CBC, CMP, and high sen trop were WNL. CT of the head wo con and CTA of the head/neck was read as "1. No acute intracranial abnormality. 2. 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 3. Otherwise unremarkable CT angiogram of the brain 4. Unremarkable CT angiogram of the neck.". We were asked to admit the patient for further evaluation of his neurologic symptoms. At the time of the exam the patient was sitting in bed in no acute distress with his sitting bedside, history was obtained from both. The patient was in his normal state of health when he woke this am around 0730. He took his am dose of omeprazole and started his day. He was sitting on the toilet at approximately 0930 when he tried to reach for the toilet paper with his right hand. He states that his right arm was difficult to control, almost as though his fine motor control was off. He states that his arm felt somewhat numb or like it was not his own right arm during this time but denies paresthesias. He also noticed that he was unable to coordinate grabbing/adjusting his glasses with his right arm/hand during this time. He was able to get back to his desk and tried to continue working on his computer. While trying to read his e-mail he noticed that he could only read text in the central portion of both eyes, he felt as though he had to adjust the position of his head to read other portions of the screen. He denies recent fever, chills, chest pain, SOB, cough, abd pain, nausea, vomiting, abd pain, dysuria, hematuria, melena, LE swelling, and recent trauma. He denies having symptoms like this in the past. He does have a previous history of scotomas not associated with headache or other symptoms of a migraine. He denies his vision changes being similar to a scotoma today. At the time of the exam he states that his symptoms have nearly resolved completely. He feels as though his strength and coordination are improved in his RUE but that his RUE still feels "off". His vision is back to baseline per the patient. Of note, the patient and his rock climb frequently. They were recently doing larger bolder climbs over the past week. The patient also helped his friend move a heavy washer last night but denies any recent trauma or injuries. Please refer to Dr. Stewart's attestation for any changes to the treatment plan Principal Diagnosis Ischemic left parietal CVA Discharge Exam General-alert and oriented x3, no fevers, no chills HEENT-head atraumatic and normocephalic, pupils equal and reactive to light, extraocular muscles intact Neck-no lymphadenopathy or thyromegaly, trachea midline Chest-clear to auscultation percussion. No rales wheezing or rhonchi Cardiac-regular rate and rhythm, normal S1 and S2 Abdomen-normal bowel sounds, nontender, no hepatosplenomegaly Extremities-no cyanosis, clubbing, or edema Neuro-cranial nerves II through XII intact, motor and sensory function within normal limits, strength symmetrical, no focal deficits Psych-normal affect, normal mood Discharge Data Allergies Allergy/AdvReac Type Severity Reaction Status Date / Time No Known Allergies Allergy Unverified 03/10/23 14:35 Consultations 03/10/23 14:00 ED Decision to Admit Stat 03/10/23 14:53 Consult Neurology Routine Ordered Studies 03/10/23 13:08 CT angio head w con Stat CT angio neck with con Stat CT head/brain wo con Stat 03/10/23 14:31 MR brain wo con Urgent Hospital Course (1) Stroke-like symptoms: Ischemic left parietal CVA seen on MRI scan. Neurology consultation appreciated. He appears to be stable for discharge. He will remain on low-dose aspirin and low-dose atorvastatin. Cardiac echo results are pending. He will need to wear a cardiac event monitor for 2 weeks postdischarge. 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 Head and neck CTA revealed a 4 mm left MCA aneurysm that is not bleeding. (2) Hernia, hiatal: Stable. Continue omeprazole (3) GERD (gastroesophageal reflux disease): Stable. 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 He will wear the cardiac event monitor for 2 weeks then follow-up with a primary care provider for review of the cardiac echo results an d the cardiac event monitor results Total Time Total Time Spent Total Time Spent (In Minutes): 45 minutes Discharge Plan Discharge Items Patient Disposition: Home - Self-Care Reason For Visit: ACUTE CVA Discharge Diagnosis: Ischemic left parietal CVA Activity: Resume your previous activity Non-emergency contact: Primary Care Provider Call non-emergency contact if: you have any medication questions and your symptoms worsen Follow-up/Referrals: PCP,NO [Primary Care Provider] - Diet: Regular and Heart Healthy Addtl Attending Provider Instructions: Take aspirin 81 mg daily and a atorvastatin 10 mg daily as directed. Wear the cardiac event monitor for 2 weeks and follow-up with a primary care provider for review of the event monitor results and the cardiac echo results Pending Studies at Discharge: Yes Studies:: Cardiac echo results and cardiac event monitor results Stand-Alone Forms: My Rain, Smoking Cessation Medications and DC Order Prescriptions: New atorvastatin 40 mg Tablet 10 mg PO QAM Qty: 30 0RF aspirin 81 mg Tablet,Delayed Release (Dr/Ec) 81 mg PO QAM Qty: 0 0RF Continued multivitamin [Multi-Vitamin] Tablet 1 tab PO QAM omeprazole-sodium bicarbonate [Zegerid OTC] 20-1.1 mg-gram Capsule 1 cap PO DAILY Discharge Orders: Discharge Order (Routine); Ordered 03/11/23 Ordered By: Nasim Calderon Admission Data Admit Date/Time: 03/10/23 20:50 Attending Provider: Nasim Calderon Admit Provider: Jaycob Stewart Primary Care Provider: PCP,NO Other Providers: Jaycob Stewart ; Erlin Funk Coding Level of Care Code 31619 INP/OBS DISCH >30 MIN Diagnoses Stroke-like symptoms R29.90 Hernia, hiatal K44.9 GERD (gastroesophageal reflux disease) K21.9 Tobacco abuse, in remission F17.201
[2023-03-11] MEDS ORDERED: STROKE PATIENT DISCHARGE STA (13:32)
--- NOTE | 2023-03-11 13:44 | Pharmacy Report ---
- Date of Service March 11, 2023 - Pharmacy CVA/TIA Medication Review Medications to Prevent Stroke handout has been added to the patients discharge packet. Antiplatelet(s) * aspirin 81 mg daily Cholesterol * low dose statin recommended by neurology - atorvastatin 10 mg daily Therapeutic Anticoagulation * No history of Afib/Aflutter noted Type 2 Diabetes * Patient does not have T2DM
--- NOTE | 2023-03-11 20:00 | XCELERA ---
[id number] [id number]
--- NOTE | 2023-03-13 13:40 | Pharmacy Report ---
Pharmacist Stroke Counseling - Date of Service March 13, 2023 - Scope: Pharmacy has been consulted to provide medication discharge counseling for this patient admitted with ischemic stroke as per the Pharmacist Discharge Counseling for Stroke Patients Protocol. - Medications on Discharge: Home Medications Medication Instructions Recorded Confirmed multivitamin 1 tab PO QAM 03/10/23 03/10/23 omeprazole 20 mg-sodium 1 cap PO DAILY 03/10/23 03/10/23 bicarbonate 1.1 gram capsule (Zegerid OTC) New Rx's Medication Instructions Recorded aspirin 81 mg tablet,delayed 81 mg PO QAM #0 tabs 03/11/23 release atorvastatin 10 mg tablet 10 mg PO DAILY #90 tabs 03/13/23 - Action: The above medications, specifically ones for stroke treatment/prophylaxis, have been reviewed in detail with the patient and/or patient financial service representative(s) prior to discharge. This includes indication, common adverse reactions, drug interactions, and medication administration. Medication counseling has been employed using the teach-back method to ensure understanding. - Outcome: The patient and/or patient financial service representative(s) have demonstrated understanding of the medications. Additional comments: Aspirin * Patient confirms that he has purchased aspirin OTC and has taken daily as directed. * He asked if he should be taking a specific formulation (EC vs chewable). I explained the difference between chewable and EC. Encouraged him to use EC product and administer with food if he experiences GI upset. * Patient asked if he can take occasional NSAID (likely ibuprofen) with aspirin. I instructed him that an occasional dose (as such for headache or minor pain) can be taken concurrently with baby aspirin but try to avoid repeat dosing and/or use for multiple days due to increased risk of bleeding. Reviewed s/s of bleeding and when to contact provider with concerns. Lipitor * Patient reports issues obtaining this medication from pharmacy. He believes issues have been resolved and plans to turkey picker Rx later today. I instructed him that it is ok to take the first dose this evening and then switch to AM dosing tomorrow as he would prefer to take all his meds in the AM for compliance. Thank you for allowing pharmacy to be involved in the care of this patient. Please call [phone] with any additional questions
== END 2023-03-11 15:25 | disposition home or self-care (01) | DRG 65 ==
LOC: EDINP 10:55 → ED 10:55 → 2N 16:48 → SUATTDRO 20:50 → 2N 21:33